=== PATIENT | female | born 1980 | race American Indian/Alaskan Native ===

== ENCOUNTER 2021-07-24 23:54 | Emergency (ER) | payer SELFPAY ==
[2021-07-25 00:01] VITALS: BP 141/102
--- NOTE | 2021-07-25 00:30 | XRay Report ---
CHEST PA AND LATERAL VIEWS INDICATION: CHEST PAIN. COMPARISON: None. FINDINGS: Support devices: None. Heart: Within normal limits. Lungs/Pleura: No acute pulmonary or pleural findings. IMPRESSION: 1. No acute findings. Signer Name: Star Yeung MD Signed: 07/25/2021 12:26 AM Workstation Name: [id number]
[2021-07-25 00:58] LABS: Basophils # (Auto) 0.1 K/mm3 (0.0-0.1); Basophils % (Auto) 1.9 % (0.0-1.8); Eosinophils # (Auto) 0.1 K/mm3 (0.0-0.4); Eosinophils % (Auto) 1.5 % (0.0-4.3); Hematocrit 39.4 % (30.3-42.9); Hemoglobin 12.7 gm/dl (10.1-14.3); Lymphocytes # (Auto) 2.5 K/mm3 (1.2-5.4); Lymphocytes % (Auto) 46.2 % (13.4-35.0); Mean Corpuscular HGB Conc 32 % (30-34); Mean Corpuscular Volume 97 fl (79-97); Monocytes # (Auto) 0.5 K/mm3 (0.0-0.8); Monocytes % (Auto) 8.4 % (0.0-7.3); Platelet Count 238 K/mm3 (140-440); Red Blood Count 4.07 M/mm3 (3.65-5.03); Red Cell Distribution Width 15.6 % (13.2-15.2)
[2021-07-25 01:20] LABS: Alanine Aminotransferase 28 units/L (7-56); Albumin 4.6 g/dL (3.9-5); Blood Urea Nitrogen 6 mg/dL (7-17); Calcium 8.3 mg/dL (8.4-10.2); Hemolysis Index 8
[2021-07-25 01:26] LABS: BUN/Creatinine Ratio 10
[2021-07-25] MEDS ORDERED: ACETAMINOPHEN 325 MG TAB PO STA (01:48)
[2021-07-25] MEDS ORDERED: KETOROLAC 30 MG/1 ML INJ IV ONE (01:48)
--- NOTE | 2021-07-25 01:49 | Emergency Department Report ---
ED General Adult HPI - General Chief complaint: Chest Pain Stated complaint: CHEST PAIN Time Seen by Provider: 07/25/21 01:35 Source: patient, EMS (EMS documentation reviewed and appreciated), RN notes reviewed Mode of arrival: Stretcher Limitations: No Limitations - History of Present Illness Initial comments: The patient was evaluated in the emergency department for symptoms described in the history of present illness. He/she was evaluated in the context of the global COVID-19 pandemic, which necessitated consideration that the patient might be at risk for infection with the virus that causes COVID-19. Institutional protocols and algorithms that pertain to the evaluation of patients at risk for COVID-19 are in a state of rapid change based on information released by regulatory bodies including the CDC and federal and state organizations. These policies and algorithms were followed during the patient's care in the emergency department. Please note that these policies, procedures and recommendations changed on a rapid basis. During the history and physical examination I am chaperoned by nurse Mila Delatorre. This patient is a 40-year-old female who reports that she is not , who reports that she has not delivered her given in the past 6 weeks, who reports that she is right-hand dominant, also reporting a past medical history of chest wall pain/costochondritis/chest wall arthritis. The patient presents to the ER today with complaint of nontraumatic chest wall pain, which started at 5:00 PM yesterday. The pain does not radiate to the back, arms or neck. There is no vomiting, diaphoresis or exertional shortness of breath. The chest wall pain increases with palpation. It decreases with rest. The patient denies travel, surgery, immobilization, DVT/PE risk factors. She denies leg pain or leg swelling. She was given fentanyl in the ambulance, which improved her symptoms. -: hour(s) Location: chest (Essential/anterior chest wall) Radiation: non-radiation Consistency: constant Improves with: medication, rest Worsens with: other (Palpation) - Related Data Previous Rx's Medication Instructions Recorded Last Taken Type Acetaminophen [Non-Aspirin Extra 500 mg PO Q6HR PRN #30 tablet 07/25/21 Unknown Rx Strength] Ibuprofen [Motrin] 400 mg PO Q8H PRN #30 tablet 07/25/21 Unknown Rx Allergies Allergy/AdvReac Type Severity Reaction Status Date / Time No Known Allergies Allergy Unverified 07/25/21 00:01 ED Review of Systems ROS: Stated complaint: CHEST PAIN Other details as noted in HPI Comment: All other systems reviewed and negative Cardiovascular: other (Chest wall pain) Psychiatric: anxiety ED Past Medical Hx - Past Medical History Previous Medical History?: Yes Hx Hypertension: Yes - Surgical History Past Surgical History?: No - Medications Home Medications: Home Medications Medication Instructions Recorded Confirmed Last Taken Type Acetaminophen [Non-Aspirin Extra 500 mg PO Q6HR PRN #30 tablet 07/25/21 Unknown Rx Strength] Ibuprofen [Motrin] 400 mg PO Q8H PRN #30 tablet 07/25/21 Unknown Rx ED Physical Exam - General Limitations: No Limitations General appearance: alert, anxious - Head Head exam: Present: atraumatic, normocephalic - Eye Eye exam: Present: normal appearance, EOMI. Absent: nystagmus - ENT ENT exam: Present: normal exam, normal orophraynx, mucous membranes moist, normal external ear exam - Neck Neck exam: Present: normal inspection, full ROM. Absent: tenderness, meningismus - Respiratory Respiratory exam: Present: normal lung sounds bilaterally, chest wall tenderness. Absent: respiratory distress, wheezes, rales, rhonchi, stridor, decreased breath sounds - Cardiovascular Cardiovascular Exam: Present: regular rate, normal rhythm, normal heart sounds. Absent: bradycardia, tachycardia, irregular rhythm, systolic murmur, diastolic murmur, rubs, gallop - GI/Abdominal GI/Abdominal exam: Present: soft. Absent: distended, tenderness, guarding, rebound, rigid, pulsatile mass - Extremities Exam Extremities exam: Present: normal inspection, full ROM, other (2+ pulses noted in the bilateral upper and lower extremities. There is no palpable cord. negative Homans sign. Muscular compartments are soft. The pelvis is stable.). Absent: pedal edema, calf tenderness - Back Exam Back exam: Present: normal inspection, full ROM. Absent: tenderness, CVA tender ness (R), CVA tenderness (L), paraspinal tenderness, vertebral tenderness - Neurological Exam Neurological exam: Present: alert, oriented X3, normal gait, other (No facial droop. Tongue midline. Extraocular movements intact bilaterally. Facial sensation intact to light touch in V1, V2, V3 distribution bilaterally. 5 and a 5 strength in 4 extremities. Sensation intact to light touch in 4 extremities.). Absent: motor sensory deficit - Psychiatric Psychiatric exam: Present: anxious - Skin Skin exam: Present: warm, dry, intact, normal color. Absent: rash ED Course Vital Signs 07/24/21 07/25/21 23:57 02:15 Temperature 98.6 F Pulse Rate 91 H Respiratory 16 14 Rate Blood Pressure 141/102 [Right] O2 Sat by Pulse 97 Oximetry ED Medical Decision Making - Lab Data Result diagrams: 07/25/21 00:32 07/25/21 00:32 Vital Signs 07/24/21 23:57 Temperature 98.6 F Pulse Rate 91 H Respiratory 16 Rate Blood Pressure 141/102 [Right] O2 Sat by Pulse 97 Oximetry Lab Results 07/25/21 07/25/21 Range/Units 00:32 00:32 WBC 5.5 (4.5-11.0) K/mm3 RBC 4.07 (3.65-5.03) M/mm3 Hgb 12.7 (10.1-14.3) gm/dl Hct 39.4 (30.3-42.9) % MCV 97 (79-97) fl MCH 31 (28-32) pg MCHC 32 (30-34) % RDW 15.6 H (13.2-15.2) % Plt Count 238 (140-440) K/mm3 Lymph % (Auto) 46.2 H (13.4-35.0) % Hodgeman % (Auto) 8.4 H (0.0-7.3) % Eos % (Auto) 1.5 (0.0-4.3) % Baso % (Auto) 1.9 H (0.0-1.8) % Lymph # (Auto) 2.5 (1.2-5.4) K/mm3 Hodgeman # (Auto) 0.5 (0.0-0.8) K/mm3 Eos # (Auto) 0.1 (0.0-0.4) K/mm3 Baso # (Auto) 0.1 (0.0-0.1) K/mm3 Seg Neutrophils % 42.0 (40.0-70.0) % Seg Neutrophils # 2.3 (1.8-7.7) K/mm3 Sodium 144 (137-145) mmol/L Potassium 3.7 (3.6-5.0) mmol/L Chloride 103.1 (98-107) mmol/L Carbon Dioxide 22 (22-30) mmol/L Anion Gap 23 mmol/L BUN 6 L (7-17) mg/dL Creatinine 0.6 (0.6-1.2) mg/dL Estimated GFR > 60 ml/min BUN/Creatinine Ratio 10 % Glucose 102 H (65-100) mg/dL Calcium 8.3 L (8.4-10.2) mg/dL Total Bilirubin 0.20 (0.1-1.2) mg/dL AST 72 H (5-40) units/L ALT 28 (7-56) units/L Alkaline Phosphatase 65 (35-129) units/L Troponin T < 0.010 (0.00-0.029) ng/mL Total Protein 7.8 (6.3-8.2) g/dL Albumin 4.6 (3.9-5) g/dL Albumin/Globulin Ratio 1.4 % - EKG Data -: EKG Interpreted by Wi EKG shows normal: sinus rhythm Rate: tachycardia - EKG Data When compared to previous EKG there are: previous EKG unavailable 07/25/21 01:54 The EKG is interpreted at 12: 16 Sinus rhythm, tachycardia, rate 100 bpm. Normal axis, normal P wave axis, high left ventricular voltage, poor R progression. Abnormal EKG. Not a STEMI. The re is no prior for comparison - Radiology Data Radiology results: pending, report reviewed, image reviewed CHEST PA AND LATERAL VIEWS INDICATION: CHEST PAIN. COMPARISON: None. FINDINGS: Support devices: None. Heart: Within normal limits. Lungs/Pleura: No acute pulmonary or pleural findings. IMPRESSION: 1. No acute findings. Signer Name: Star Yeung MD Signed: 07/24/2021 11:26 PM Workstation Name: [id number] - Medical Decision Making Differential diagnosis, including not limited to: Pneumonia, GERD, gastritis, costochondritis, coronary artery disease Assessment and plan: 40-year-old female, who is afebrile, with reassuring vital signs, who is clinically sober, with a GCS of fifteen, presenting to the ER today with a complaint of reproducible chest wall pain, who is not currently tachycardic, tachypneic or hypoxic, who denies DVT and pulmonary embolism risk factors, who is low risk by Wells criteria for pulmonary embolism. She has no pulsatile abdominal mass, equal pulses in the upper and lower extremities, and an unremarkable chest x-ray. Patient presented approximately 7 hours after onset of chest pain which is reproducible, and also reports a history of reproducible chest wall pain/costochondritis in the past. The patient is at low risk for major adverse cardiac event as per heart score. She felt improved after appropriate pain medication. The patient may follow-up with an outpatient primary care doctor and/or factory helper for her chest wall pain. AST of 72 nonspecific. Patient has no abdominal tenderness, rebound, guarding or right upper quadrant pain. Outpatient follow-up. Return precautions reviewed Critical care attestation.: If time is entered above; I have spent that time in minutes in the direct care of this critically ill patient, excluding procedure time. ED Disposition Clinical Impression: Chest wall pain Disposition: 01 HOME / SELF CARE / HOMELESS Is pt being admited?: No Does the pt Need Aspirin: No Condition: Good Instructions: Costochondritis Additional Instructions: Please take the prescribed medications as needed and directed. Please follow-up with your primary care doctor or factory helper within the next 3 to 5 days. These have your outpatient physician contact the medical records department to obtain copies of laboratory studies and radiology studies, to follow-up on nonemergent incidental abnormality findings. Please return to the emergency room right away with new pain, worsened pain, migration of pain, projectile vomiting, change in mental status, confusion, inability tolerate liquid feeds, new, worsened or different symptoms not present on the initial emergency room evaluation Referrals: [facility] [Provider Group] - 3-5 Days [facility] [Provider Group] - 3-5 Days Forms: Work/School Release Form(ED) Heart Score - HEART Score History: Slightly suspicious EKG: Non-specific Age: < 45 Risk factors: 1-2 risk factors Troponin: < normal limit HEART Score: 2 - EKG Read Time Time EKG Completed: 12:16 EKG Read Time: 12:16 - Critical Actions Critical Actions: 0-3 pts:0.9-1.7%risk of adverse cardiac event.Candidate for discharge
--- NOTE | 2021-07-26 13:15 | Electrocardiograph Report ---
[facility] Test Date: 2021-07-25 Test Time: 00:16:34 Pat Name: LINDA GROVER Department: Room: Gender: F Manager Intensive Care: NURSE : 1980 Requested By: KARLOS CARRILLO Order Number: [id number] Reading MD: Antione Kemp Measurements Intervals [place] Rate: 100 P: 51 MI: 185 QRS: 77 QRSD: 76 T: 29 QT: 378 QTc: 488 Interpretive Statements Sinus tachycardia No previous ECG available for comparison Electronically Signed On 07-26-2021 13:15:38 EST by Antione Kemp
== END 2021-07-25 03:40 | disposition home or self-care (01) ==
LOC: ED 23:54
DX: R07.89 Other chest pain (principal); I10 Essential (primary) hypertension
CPT/HCPCS: 36415; 71046; 80053; 84484; 85025; 93005; 93010; 96374; 99284; J1885